=== PATIENT | male | born 1945 | race Caucasian/White ===

== ENCOUNTER → 2017-04-26 | Outpatient (CLI) | payer BC, MEDICARE ==
[~2017-04-26] MED LIST: ASPIRIN EC81 M1 PO; ATENOLOL 100MG100 M2 PO; ATENOLOL 50MG T50 M1 PO; CITRATE OF MAG296 ML PO; CLEOCIN HCL300 MG PO; CLONIDINE0.1 PO; ETODOLAC500 MG PO; HYDROCODON-ACE1 EAC7 PO; LOSARTAN POTASS50 MG PO; NEURONTIN 300300 M1 PO; NORVASC 5 MG TAB5 MG PO; OXYCODONE HCL 55 MG PO; PERCOCET 5-3251 EACH PO
[2017-04-26 12:42] LABS: CREATININE 0.7 mg/dL (0.6-1.3)
== END ==
LOC: M.LAB 12:10 → M.CT 13:30
PROVIDERS: Family Medicine
DX: R10.84 Generalized abdominal pain (principal); R10.2 Pelvic and perineal pain

== ENCOUNTER → 2017-04-30 | Outpatient (CLI) | payer BC, MEDICARE | LOC: M.MRI 14:08 | DX: S83.241A Other tear of medial meniscus, current injury, right knee, initial encounter (principal); X58.XXXA Exposure to other specified factors, initial encounter; Y93.89 Activity, other specified; Y92.89 Other specified places as the place of occurrence of the external cause; Y99.8 Other external cause status ==

== ENCOUNTER 2017-06-18 15:07 | Emergency (ER) | payer BC, MEDICARE ==
[~2017-06-18] VITALS: Ht 182.9 cm; Wt 97.5 kg
[~2017-06-18 15:07] MED LIST changes: -ATENOLOL 100MG100 M2 PO; -CLONIDINE0.1 PO; -ETODOLAC500 MG PO; -HYDROCODON-ACE1 EAC7 PO; -NEURONTIN 300300 M1 PO
[2017-06-18] MEDS ORDERED: CLONIDINE0.1 PO (15:18)
[2017-06-18] MEDS ORDERED: ATENOLOL 100MG100 M2 PO (15:18)
[2017-06-18] MEDS ORDERED: ETODOLAC500 MG PO (15:19)
[2017-06-18] MEDS ORDERED: NEURONTIN 300300 M1 PO (15:19)
[2017-06-18] MEDS ORDERED: HYDROCODON-ACE1 EAC7 PO (15:20)
[2017-06-18 15:56] LABS: ABSOLUTE BASOPHILS 0.1 thou/uL (0.0-0.2); ABSOLUTE EOSINOPHILS 0.2 thou/uL (0.0-0.7); ABSOLUTE LYMPHOCYTES 0.9 thou/uL (0.8-5.3); ABSOLUTE MONOCYTES 0.6 thou/uL (0.0-1.2); ABSOLUTE NEUTROPHILS 6.1 thou/uL (1.6-8.1); BASOPHILS 0.9 %; EOSINOPHILS 2.5 %; HEMATOCRIT 39.5 % (42.0-52.0); HEMOGLOBIN 13.3 gm/dL (14.0-18.0); MCH 30.6 pg (26.0-34.0); MCHC 33.6 g/dL (28.0-37.0); MCV 90.9 fL (80.0-100.0); MONOCYTES 8.1 %; MPV 6.8 fl. (7.2-11.1); NUCLEATED RBCS 0 /100WBC; PLATELET COUNT* 293 thou/uL (150-400); POLYS 77.5 %; RBC 4.35 mil/uL (4.50-6.00); RDW-CV 13.4 % (10.5-14.5); WBC 7.8 thou/uL (4.0-11.0)
[2017-06-18 16:05] LABS: CALCIUM 9.1 mg/dL (8.5-10.1); CREATININE 0.8 mg/dL (0.6-1.3); POTASSIUM 4.3 mmol/L (3.5-5.1)
[2017-06-18 16:09] LABS: ALBUMIN 3.3 g/dL (3.4-5.0); TOTAL BILIRUBIN 0.8 mg/dL (<0.1-1.0); TOTAL PROTEIN 7.6 g/dL (6.4-8.2)
[2017-06-18 19:58] VITALS: BP 133/64
== END 2017-06-18 20:00 | disposition home or self-care (01) ==
LOC: M.ERS 15:07
PROVIDERS: Nurse Practitioner Family
DX: R04.2 Hemoptysis (principal); I10 Essential (primary) hypertension

== ENCOUNTER 2017-06-28 13:25 | Inpatient (IN) | payer MEDICARE, BC ==
[~2017-06-28] VITALS: Ht 175.3 cm; Wt 98.0 kg
[~2017-06-28 13:25] MED LIST changes: +ATENOLOL 100MG100 M2 PO; +CLONIDINE0.1 PO; +ETODOLAC500 MG PO; +HYDROCODON-ACE1 EAC7 PO; +NEURONTIN 300300 M1 PO
[2017-06-28 13:34] VITALS: BP 139/48
[2017-06-28 14:33] LABS: HEMATOCRIT 34.5 % (42.0-52.0); HEMOGLOBIN 11.3 gm/dL (14.0-18.0); MCH 29.5 pg (26.0-34.0); MCHC 32.7 g/dL (28.0-37.0); MCV 90.2 fL (80.0-100.0); MPV 6.8 fl. (7.2-11.1); NUCLEATED RBCS 0 /100WBC; PLATELET COUNT* 432 thou/uL (150-400); RBC 3.82 mil/uL (4.50-6.00); RDW-CV 13.6 % (10.5-14.5); WBC 11.4 thou/uL (4.0-11.0)
[2017-06-28 14:41] LABS: ANION GAP 7 mmol/L (7-16); BUN 64 mg/dL (7-18); CALCIUM 9.3 mg/dL (8.5-10.1); CHLORIDE 95 mmol/L (98-107); CO2 31 mmol/L (21-32); CREATININE 1.2 mg/dL (0.6-1.3); GLUCOSE 136 mg/dL (70-99); POTASSIUM 4.1 mmol/L (3.5-5.1); SODIUM 133 mmol/L (136-145)
[2017-06-28 14:51] LABS: ALBUMIN 2.1 g/dL (3.4-5.0); ALKALINE PHOSPHATASE 483 U/L (46-116); LIPASE 130 U/L (73-393); NT-PRO BRAIN NAT PEPTIDE 1096 pg/mL (<300); SGOT 34 U/L (15-37); SGPT 56 U/L (30-65); TOTAL BILIRUBIN 1.3 mg/dL (<0.1-1.0); TOTAL PROTEIN 7.5 g/dL (6.4-8.2); TROPONIN-I LEVEL <0.06 ng/mL (<0.06)
[2017-06-28 15:17] LABS: URINE BLOOD NEGATIVE (Negative); URINE CLARITY CLEAR; URINE COLOR YELLOW; URINE GLUCOSE-RANDOM NEGATIVE (Negative); URINE KETONES NEGATIVE (Negative); URINE LEUKOCYTES-REFLEX NEGATIVE (Negative); URINE NITRITE-REFLEX NEGATIVE (Negative); URINE PROTEIN TRACE (Negative); URINE SPECIFIC GRAVITY 1.015 (1.005-1.030)
[2017-06-28 15:20] LABS: ICTOTEST (BILI CONFIRMATORY) Positive (Negative); URINE BILIRUBIN 2+ (Negative)
[2017-06-28 15:26] LABS: ABSOLUTE EOSINOPHILS 0.1 thou/uL (0.0-0.7); ABSOLUTE LYMPHOCYTES 0.8 thou/uL (0.8-5.3); ABSOLUTE MONOCYTES 0.8 thou/uL (0.0-1.2); ABSOLUTE NEUTROPHILS 9.7 thou/uL (1.6-8.1)
[2017-06-28 15:27] LABS: PLATELET ESTIMATE INCREASED
--- NOTE | 2017-06-28 16:24 | EKG ---
[place] [address] ELECTROCARDIOGRAM REPORT Name: ARIANNEBILL V Room: [place] [address] ADM IN [facility].#: [id number] Admission: 06/28/17 Attend Phys: Gurinder Becerra MD Discharge: Date of : 45 Report #: [id number] THIS REPORT FOR: //name// [facility] ED Test Date: 2017-06-28 Test Time: 14:10:38 Pat Name: BILL ACUÑA Department: Room: Gender: Facility Assistant: Hayes BOWMAN : 1945 Requested By: Alma Delia Means Order Number: [id number] MD: Andre Perez Measurements Intervals [place] Rate: 73 P: 50 WA: 163 QRS: 71 QRSD: 160 T: -1 QT: 441 QTc: 486 Interpretive Statements Sinus rhythm Right bundle branch block Compared to ECG 03/29/2013 08:26:46 Right bundle-branch block now present Sinus bradycardia no longer present Electronically Signed On 06-28-2017 16:24:28 CDT by Andre Perez [email or web address] <ELECTRONICALLY SIGNED> By: Andre Perez MD, [facility] 06/28/17 1624 1410 1410 Andre Perez MD, [facility] /EPI
--- NOTE | 2017-06-28 17:02 | NUR ---
GOLDIE NOTIFIED UPON PT RETURN FROM CT. PT CONNECTED TO BP AND O2 SAT HE WAS PRIOR TO GOING TO CT
[2017-06-28 18:01] VITALS: BP 136/55
[2017-06-28 18:15] VITALS: BP 137/67
--- NOTE | 2017-06-28 18:54 | NUR ---
ASSUMED CARE OF PT AT 1820. PT VSS AT THIS TIME. PT TOLERATING 4L NC AT THIS TIME. PT ABLE TO AMBULATE WITH SBA AT THIS TIME WITH GAIT BELT AND CANE. PT [facility] AND WAS SENT HOME. PT AND ABLE TO ANSWER ALL ADMISSION QUESTIONS AT THIS TIME. PT SIGNED FALL CONTRACT AND STATED THAT HE WOULD CALL OUT FOR AMBULATORY NEEDS. PT RESTING COMFORTABLY IN BED AT THIS TIME.
[2017-06-28 20:00] VITALS: BP 128/62
[2017-06-28 21:32] LABS: BE 4.5 mmol/L (-2 to +3); HCO3 29.7 mmol/L (22.0-26.0); PCO2 VENOUS 46.6 mmHg (41.0-51.0)
[2017-06-28 21:34] LABS: PO2 VENOUS 37.3 mmHg (35.0-45.0)
[2017-06-28 23:35] VITALS: BP 119/60
[2017-06-29 03:47] VITALS: BP 125/54
[2017-06-29 04:38] LABS: ABSOLUTE LYMPHOCYTES 0.4 thou/uL (0.8-5.3); ABSOLUTE MONOCYTES 0.2 thou/uL (0.0-1.2); ABSOLUTE NEUTROPHILS 10.1 thou/uL (1.6-8.1); BASOPHILS 0.2 %; EOSINOPHILS 0.1 %; HEMATOCRIT 31.2 % (42.0-52.0); HEMOGLOBIN 10.3 gm/dL (14.0-18.0); LYMPHOCYTES 3.6 %; MCHC 33.1 g/dL (28.0-37.0); MCV 90.8 fL (80.0-100.0); MONOCYTES 2.2 %; MPV 6.8 fl. (7.2-11.1); NUCLEATED RBCS 0 /100WBC; PLATELET COUNT* 425 thou/uL (150-400); POLYS 93.9 %; RBC 3.43 mil/uL (4.50-6.00); RDW-CV 13.7 % (10.5-14.5); WBC 10.8 thou/uL (4.0-11.0)
[2017-06-29 04:52] LABS: CALCIUM 9.3 mg/dL (8.5-10.1); CREATININE 1.1 mg/dL (0.6-1.3); POTASSIUM 4.3 mmol/L (3.5-5.1)
--- NOTE | 2017-06-29 07:43 | NUR ---
PT SLEPT AWAKE MOST OF SHIFT. ASSESSMENT DOCUMENTED. MEDS GIVEN PER E-MAR. PT REPORTED DISCOMFORT IN BED AND RECLINER WHEN STILL, BUT STATED THAT THE DISCOMFORT WENT AWAY WITH REPOSITIONING. NO REPORTS OF NAUSEA. O2 REMAINED ON ALL SHIFT. WILL CONTINUE WITH PLAN OF CARE.
[2017-06-29 08:28] LABS: PROTIME 9.8 Seconds (9.20-11.50)
[2017-06-29 09:00] VITALS: BP 112/58
--- NOTE | 2017-06-29 11:07 | NUR ---
Nutrition: Pt assessed for nursing risk 2 points. Wt appears stable, 215#. BG 173, albumin 2.1, prealbumin 11.7. Pt admitted with pneumonia, SIRS. H/o COPD. NPO currently. Per progress notes, pt needs thoracentesis. Possible transfer. Inadequate oral intake R/T diet order AEB NPO. Please advance diet once pt is clinically able. No other nutrition interventions needed at this time, while pt is NPO. Mild risk.
[2017-06-29 13:06] LABS: SOURCE THORACENTESIS; TOTAL VOLUME 156 ml
[2017-06-29 13:07] LABS: BF RBC 10000 /mm3; CLARITY CLOUDY; COLOR YELLOW; TOTAL CELL COUNT 21525 /mm3
[2017-06-29 13:11] LABS: BF LYMPHOCYTES 5 %; BF MONOCYTES 5 %; BF POLYS 89 %; BODY FLUID BANDS 1 %
--- NOTE | 2017-06-29 14:27 | 2DMMODE ---
[place] [address] 2 D/M-MODE ECHOCARDIOGRAM Name: LEIGHMANUELBILL Karen Room: [address] IN [facility]#: [id number] Admission: 06/28/17 Attend Phys: Gurinder Becerra, Discharge: Date of : 45 Date of Service: 06/29/17 1426 Report #: [id number] THIS REPORT FOR: //name// APPROVED REPORT Study performed: 06/29/2017 12:54:31 EXAM: Comprehensive 2D, Doppler, and color-flow Echocardiogram Patient Location: In-Patient Room #: [facility] Status: routine BSA: 2.13 HR: 70 bpm BP: 112/58 mmHg Rhythm: NSR Other Information Study Quality: Good Indications Congestive Heart Failure 2D Dimensions LVEF(%): 86.71 (>50%) IVSd: 12.80 (7-11mm) LVOT Diam: 21.28 (18-24mm) LVDd: 45.11 mm PWd: 8.24 (7-11mm) Ascending Ao: 34.09 (22-36mm) LVDs: 19.77 (25-40mm) Aortic Root: 31.28 mm Emery's LVEF: 86.71 % Volumes Left Atrial Volume (Systole) LA ESV Index: 33.30 mL/m2 Aortic Valve AoV Peak Asad.: 1.80 m/s AO Peak Gr.: 13.00 mmHg LVOT Max P.52 mmHg AO Mean Gr.: 7.25 mmHg LVOT Mean P.20 mmHg LVOT Max V: 1.46 m/s AO V2 VTI: 36.33 cm LVOT Mean V: 0.79 m/s OSMEL (VTI): 2.68 cm2 LVOT V1 VTI: 27.37 cm Mitral Valve E/A Ratio: 0.73 [place] [address] 2 D/M-MODE ECHOCARDIOGRAM Name: BILL ACUÑA V Room: [address] IN [facility]#: [id number] Admission: 06/28/17 Attend Phys: Gurinder Becerra, Discharge: Date of : 45 Date of Service: 06/29/17 1426 Report #: [id number] MV Decel. Time: 300.43 ms MV E Max Asad.: 0.78 m/s MV PHT: 87.13 ms MVA (PHT): 2.53 cm2 TDI E/Lateral E': 5.20 E/Medial E': 5.20 Medial E' Asad.: 0.15 m/s Lateral E' Asad.: 0.15 m/s Pulmonary Valve PV Peak Asad.: 1.49 m/s PV Peak Gr.: 8.93 mmHg Left Ventricle The left ventricle is normal size. There is normal LV segmental wall motion. There is normal left ventricular wall thickness. Left ventricular systolic function is normal.The left ventricular ejection fraction is within the normal range. LVEF is 55-60%. Grade I - abnormal relaxation pattern. Right Ventricle The right ventricle is normal size. The right ventricular systolic function is normal. Atria Left atrium is mildly dilated. Right atrium is mildly dilated. Aortic Valve Mild aortic valve sclerosis. No aortic regurgitation is present. There is no aortic valvular stenosis. Mitral Valve The mitral valve is normal in structure. There is no mitral valve regurgitation noted. No evidence of mitral valve stenosis. Tricuspid Valve The tricuspid valve is normal in structure. Unable to assess PA pressure. Trace tricuspid regurgitation. Pulmonic Valve The pulmonary valve is normal in structure. There is no pulmonic valvular regurgitation. Great Vessels The aortic root is normal in size. IVC [place] [address] 2 D/M-MODE ECHOCARDIOGRAM Name: BILL ACUÑA V Room: [address] IN .#: [id number] Admission: 06/28/17 Attend Phys: Gurinder Becerra, Discharge: Date of : 45 Date of Service: 06/29/17 1426 Report #: [id number] collapses with >50% inspiration Pericardium There is no pericardial effusion. <Conclusion> The left ventricle is normal size. There is normal left ventricular wall thickness. Left ventricular systolic function is normal.The left ventricular ejection fraction is within the normal range. LVEF is 55-60%. Grade I - abnormal relaxation pattern. Left atrium is mildly dilated. Right atrium is mildly dilated. Mild aortic valve sclerosis. There is no aortic valvular stenosis. IVC is normal in size and collapses with >50% inspiration <ELECTRONICALLY SIGNED> By: Jayme Cabrera MD, FACC 06/29/17 1426 1426 1426 Jayme Cabrera MD, FACC /INF
--- NOTE | 2017-06-29 15:54 | NUR ---
SW met with pt to complete initial assessment, introduce self, and SW role. Pt bedside. Pt lives at home with and was independent with ADLs and mobility. Pt does not have any DME. Pt has no history of HH or SNF. Pt does not anticipate any dc needs at this time. SW to continue to follow to assist with safe dc planning.
[2017-06-29 16:47] VITALS: BP 148/66
--- NOTE | 2017-06-29 17:18 | NUR ---
PATIENT HAS BEEN ALERT AND ORIENTED TODAY VERY PLEASANT, AT BEDSIDE TODAY. VITAL SIGNS STABLE ON 4 LITERS OF OXYGEN THROUGH NASAL CANNULA, TOLERATED PROCEDURE WELL TODAY. UP STAND BY IN ROOM. CALL LIGHT IS IN REACH, WILL CONTINUE TO MONITOR.
[2017-06-29 19:45] VITALS: BP 118/58
[2017-06-29 23:30] VITALS: BP 111/56
[2017-06-30 03:23] LABS: ABSOLUTE LYMPHOCYTES 0.3 thou/uL (0.8-5.3); ABSOLUTE MONOCYTES 0.6 thou/uL (0.0-1.2); ABSOLUTE NEUTROPHILS 11.2 thou/uL (1.6-8.1); BASOPHILS 0.2 %; HEMATOCRIT 29.1 % (42.0-52.0); HEMOGLOBIN 9.6 gm/dL (14.0-18.0); LYMPHOCYTES 2.8 %; MCH 29.8 pg (26.0-34.0); MCHC 33.2 g/dL (28.0-37.0); MCV 89.8 fL (80.0-100.0); MONOCYTES 4.7 %; MPV 6.4 fl. (7.2-11.1); NUCLEATED RBCS 0 /100WBC; PLATELET COUNT* 436 thou/uL (150-400); POLYS 92.3 %; RBC 3.24 mil/uL (4.50-6.00); RDW-CV 13.6 % (10.5-14.5); WBC 12.2 thou/uL (4.0-11.0)
[2017-06-30 03:37] LABS: ALBUMIN 1.8 g/dL (3.4-5.0); CALCIUM 9.1 mg/dL (8.5-10.1); CREATININE 1.4 mg/dL (0.6-1.3); POTASSIUM 4.7 mmol/L (3.5-5.1); TOTAL BILIRUBIN 0.6 mg/dL (<0.1-1.0); TOTAL PROTEIN 6.6 g/dL (6.4-8.2)
[2017-06-30 03:38] VITALS: BP 117/53
--- NOTE | 2017-06-30 05:40 | NUR ---
PT SLEPT ON AND OFF THIS SHIFT. ASSESSMENT DOCUMENTED. MEDS GIVEN PER E-APR. IV PATENT, ABX INFUSED. NO REPORTS OF PAIN. BANDAGE ON THORACENTESIS SITE C/D/I. PT IRRITATED THIS SHIFT WITH BEING AWOKEN SO MANY TIMES FOR BREATHING TREATMENT AND LAB, PT WANTS TO KNOW IF HE COULD JUST HAVE BREATHING TREATMENTS WHILE AWAKE. PT HAD LARGE BOWEL MOVEMENT THIS SHIFT. WILL CONTINUE WITH PLAN OF CARE.
[2017-06-30 08:30] VITALS: BP 116/53
--- NOTE | 2017-06-30 09:01 | CON ---
[address] [address] CONSULTATION Name: ARIANNEBILL Karen Room: [address] IN .R.#: [id number] Admission: 06/28/17 Attend Phys: Gurinder Becerra MD Discharge: Date of : 45 Report #: [id number] THIS REPORT FOR: //name// CC: Gurinder Becerra [facility] REQUESTING PHYSICIAN: Gurinder Becerra MD REASON FOR CONSULTATION: Pleural effusions, chest pain. DISCUSSION: The patient is a 72-year-old man is admitted after presenting to the Emergency Department yesterday. He has generally not felt well since the beginning of the month. He was seen in the ER here on 06/18/2017 with complaints of increased cough, congestion. He had some intermittent hemoptysis at that time. Was evaluated in the ED at that time. Chest x-ray revealed some bibasilar atelectasis. He did have a CT angiogram done of his chest. It did show the mild atelectatic changes seen. No pulmonary emboli or infiltrates. No worrisome masses. He was recommended that he followup with his physicians as well as Pulmonary appointment. After he had been in the ED here, he then developed severe pain. This was over left chest and left abdominal area. Was seen in the Emergency Department at [place]. We do not have those records available. He notes he had additional x-rays and scans done there. Again, was told that it did not appear to have anything serious, though states he was advised that he should look for development of shingles. He had followup with Dr. Dela Cruz. Was told there might be a "little bit of fluid" around the left lung. To this time, he did have antibiotics as well as a steroid taper. He fortunately has worsened. He had vomiting, at times it was quite significant, which he thought it might be related to his medications that he was given When he was reevaluated in the ED here yesterday, chest x-ray revealed development of a large left pleural effusion. This was followed up with the CT scan of his chest. This showed loculated left pleural effusion. Infiltrate and atelectasis seen in the left lung. These were all changes new from 06/18/2017. No pulmonary emboli were seen. He did have some mild adenopathy noted. He is a former smoker, quitting about 4 years ago. At that time, it was the time he was having hernia surgery. He does not carry a diagnosis of COPD, emphysema or asthma. He has not been on any oxygen or inhalers at home. He does not believe he has had pneumonia in the past. He has had no syncopal episodes. He has had no recent travel. He is denying any chest trauma. No recent dental work done. Not aware of any issues with his teeth. PAST MEDICAL HISTORY: Remarkable for hypertension. He does require several medications at home for this. He also had inguinal hernia repair done several years ago. He has had thoracic spine surgery and was diagnosed last winter with prostate cancer. He completed radiation therapy in February of this year. He is due for followup soon in regards to his PSAs. [address] [address] CONSULTATION Name: BILL ACUÑA V Room: [address] IN M.R.#: [id number] Admission: 06/28/17 Attend Phys: Gurinder Becerra MD Discharge: Date of : 45 Report #: [id number] HOME MEDICATIONS: P.r.n. hydrocodone, etodolac, gabapentin, clonidine, atenolol, and losartan. SOCIAL HISTORY: Former smoker as noted. He is . 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 FAMILY HISTORY: Positive for heart disease, diabetes, cancers, but no lung problems that he is aware of. REVIEW OF SYSTEMS: A 12-point ROS was done. Note positives as above. Up until the onset of his symptoms late May, he had been feeling generally fairly good. Weight had been stable. No GI symptoms. He does get some pain in his right knee area. He typically does sleep in a recliner. He has done that since he had his hernia surgery several years ago. It is not clear exactly why. He does note at times, he may have some vague discomfort in the left upper quadrant of his abdomen. He has not had issues with lower extremity edema. PHYSICAL EXAMINATION: GENERAL APPEARANCE: A man who looks his stated age. He looks uncomfortable. His is at the bedside. He has O2 running via nasal cannula. He is uncomfortable with movement. He is able to speak in full sentences. HEENT: Head is normocephalic. Sclerae nonicteric. Mucous membranes do look moist. NECK: Negative for adenopathy. No JVD is noted. HEART: Regular. He is mildly tachycardic. No S3 is heard. LUNGS: Reveal breath sounds to be diminished on the left side, especially in the lower half of the left hemithorax. There are some E to A changes. There is dullness to percussion left base with decreased tactile fremitus. Few faint crackles heard on the left. Right side is clear. No CVA tenderness. ABDOMEN: Mildly obese, but soft. Cannot reproduce any pain with palpation. EXTREMITIES: He has no clubbing. Radial pulses are present. Lower extremities negative for any edema. SKIN: Warm and dry. NEUROLOGIC: He is alert and oriented x 3. Sputum, he did expectorate while I was in the room, was white to pale yellow with no blood seen. LABORATORY AND X-RAY FINDINGS: A CT chest was reviewed. As noted above, does have a significant left pleural effusion with loculations. This was not seen on the study done on 06/18/2017. Blood cultures are pending. On his labs, BUN yesterday was 64 with a creatinine of 1.2. This morning, BUN is down to 49 with a creatinine of 1.1, serum bicarbonate of 27. Total bilirubin 1.3, alkaline phosphatase 483, albumin 2.1, total protein is 7.5. ProBNP 1096. Lactic acid 0.9, AST 34, ALT 56. PT, PTT were normal. D-dimer was elevated at 4.69. White blood cell count yesterday 11,400; hemoglobin 11.3, hematocrit 34.5. He did have a left shift. This morning, white count is 10,800. Continues with a left [facility] [address] [facility] [place] [address] CONSULTATION Name: BILL ACUÑA V Room: [address] IN [facility]#: [id number] Admission: 06/28/17 Attend Phys: Gurinder Becerra MD Discharge: Date of : 45 Report #: [id number]. Platelets normal. He had a venous gas done yesterday. A pH 7.42, pCO2 of 47, pO2 of 37. Blood cultures were sent yesterday those results are pending. IMPRESSION: 1. Loculated left pleural effusion. Onset with a span of 10 days. Probably did have a lower respiratory tract infection, early pneumonia not seen previously on imaging studies beginning of the month. Now has a significant left pleural effusion. With his symptoms and the loculations noted, concerned that this is an empyema. At a minimum, it is a complicated parapneumonic effusion. It does it is community acquired. However, with the vomiting that he has had, it does raise the possibility that a component of this could be aspiration and consequently anaerobes are consideration. 2. Mild dehydration. 3. Anemia. 4. Past history of tobacco abuse, quit 4 years ago. 5. History of prostate cancer, status post radiation therapy. 6. History of hypertension. RECOMMENDATIONS: 1. IR will be tapping him today. I will see how much fluid they are able to remove. Await pleural fluid studies. 2. Given the findings on his CAT scan, I am concerned he may require surgical intervention for decortication. This was discussed briefly with the patient and his . If that is the case, would necessitate a transfer to another facility with those capabilities. 3. In the interim, would also change his Rocephin to Zosyn. This will give us better coverage of anaerobes. <ELECTRONICALLY SIGNED> By: Mervin Pike MD 06/30/17 0901 1142 25Kiki Guerrero MD /nt
[2017-06-30 09:16] VITALS: BP 116/53
[2017-06-30 11:09] LABS: BODY FLUID AMYLASE 28 U/L (()); BODY FLUID PROTEIN 4.7 g/dL (())
--- NOTE | 2017-06-30 11:28 | NUR ---
KARL was informed of need for pt to transfer for thoracic surgery. KARL spoke with pt who wanted [facility]. SW called [facility] transfer team and they responded that the [place] location would be the only option. Pt did not want [facility] and preferred [facility]. KARL called and spoke with pt transfer nurse who accepted pt transfer and provided room number and accepting doctor. SW completed transfer form and arranged transportation for chicken picker at 1300.
[2017-06-30 12:06] LABS: BODY FLUID LDH 4542 IU/L (())
--- NOTE | 2017-06-30 13:30 | NUR ---
HERMELINDA TRANSFERRED TO [facility]. REPORT CALLED TO DINORA. PATIENT BELONGINGS PACKED BY FAMILY. PATIENT TRANSPORTING BY EMS AT THIS TIME.
[2017-06-30 14:49] LABS: SOURCE THORACENTESIS
[2017-06-30 15:11] LABS: BODY FLUID PH 7.7 (Not Estab.)
[2017-07-06 15:19] LABS: SOURCE THORACENTESIS
== END 2017-06-30 13:30 | disposition short-term general hospital (02) | DRG 177 ==
LOC: M.ERS 13:25 → M.TBA-ER 14:58 → M.3W 14:58
PROVIDERS: Nurse Practitioner Family; ADMIT Internal Medicine
PROC: 0W9B3ZX Drainage of Left Pleural Cavity, Percutaneous Approach, Diagnostic (ICD-10-PCS; principal; 2017-06-29)
PROC: BB4BZZZ Ultrasonography of Pleura (ICD-10-PCS; principal; 2017-06-29)
DX: J15.6 Pneumonia due to other Gram-negative bacteria (principal); J96.00 Acute respiratory failure, unspecified whether with hypoxia or hypercapnia; J86.9 Pyothorax without fistula; I50.33 Acute on chronic diastolic (congestive) heart failure; J90 Pleural effusion, not elsewhere classified; R65.10 Systemic inflammatory response syndrome (SIRS) of non-infectious origin without acute organ dysfunction; R04.2 Hemoptysis; J44.0 Chronic obstructive pulmonary disease with (acute) lower respiratory infection; D64.9 Anemia, unspecified; E86.0 Dehydration; I10 Essential (primary) hypertension; Z85.46 Personal history of malignant neoplasm of prostate; Z83.3 Family history of diabetes mellitus; Z82.49 Family history of ischemic heart disease and other diseases of the circulatory system; Z80.9 Family history of malignant neoplasm, unspecified; Z87.891 Personal history of nicotine dependence

== ENCOUNTER → 2018-09-08 | Outpatient (CLI) | payer BC, MEDICARE | LOC: M.ULTRA 06:58 | DX: R60.0 Localized edema (principal) ==

== ENCOUNTER → 2018-10-21 | Outpatient (CLI) | payer BC, MEDICARE | LOC: M.LAB 10-05 07:30 → M.MRI 10-05 08:30 → M.LAB 10-14 07:30 | DX: M51.36 Other intervertebral disc degeneration, lumbar region (principal); M48.061 Spinal stenosis, lumbar region without neurogenic claudication; M51.37 Other intervertebral disc degeneration, lumbosacral region; M54.41 Lumbago with sciatica, right side; G89.29 Other chronic pain; M25.561 Pain in right knee; M25.562 Pain in left knee ==